=== PATIENT | female | born 1955 | race Caucasian/White ===

== ENCOUNTER → 2019-12-13 | Outpatient (CLI) | payer BC, SELFPAY ==
--- NOTE | 2019-12-13 09:15 | FLU_PTH ---
PATIENT: PEDRO URRUTIA [facility] U#:[id number] AGE/SX: 64/F ROOM: RE12/13/[address]: Dr. Franco Mcclendon MD : 1955 BED: DIS: 12/13/2019 SPEC #: [id number] RECD: 12/13/19 13:59 STATUS: SCOTTY JOSE #: [id number] RUBIN: 12/13/19 09:[address]: Franco Mcclendon DEPT: CYTOLOGY RECD BY: Anabelle Spence Tissues: Parotid gland, NOS Procedures: Special Stain Group II Cytospin Fluid HEADER OPERATION: FNA right parotid mass PRE-OP DIAGNOSIS: Right parotid mass TISSUE SUBMITTED: Right parotid mass fluid for cytology DIAGNOSIS CYTOLOGY Right parotid mass fluid for cytology (cytospin and cell block): Consistent with lymph node tissue. See cytology study and comment. SJ:nj 12/14/19 COMMENT The findings may represent intraparotid or periparotid lymph node. Correlation with clinical, radiologic findings and appropriate follow up are necessary. If there is high suspicion of malignancy, excisional biopsy of lymph node is suggested if clinically indicated. Case has been reviewed in consultation with Dr. Hawthorne who concurs with the above diagnosis. IDC:AM CYTOLOGY STUDY Slides are reviewed. The specimen entirely consists of polymorphous population of lymphocytes predominantly consists of small lymphocytes. No normal salivary gland tissue is identified. CYTOLOGY GROSS Received is 35 ml of pink cloudy fluid labeled with the patient's name and and designated per the requisition as right parotid. Submitted for cytology preparation including cell block. / nj 12/13/19 TC:5 CPT: 00850, 14485
== END | disposition home or self-care (01) ==
LOC: LABSPEC 13:08
PROVIDERS: Referring Provider Otolaryngology; Visit Provider Otolaryngology
DX: K11.8 Other diseases of salivary glands (principal)
CPT/HCPCS: 88108; 88313